=== PATIENT | female | born 1950 | race Caucasian/White ===

== ENCOUNTER → 2018-11-26 | Day surgery (SDC) | payer MEDICARE ==
[2018-11-21 12:33] LABS: BASOPHILS # (AUTO) 0.1 (0.0-0.1); BASOPHILS % 0.8 % (0.0-1.0); EOSINOPHILS # (AUTO) 0.1 (0.0-0.4); EOSINOPHILS % 1.4 % (0.0-6.0); HEMATOCRIT 43.6 % (34.2-44.1); HEMOGLOBIN 13.9 g/dL (12.0-16.0); LYMPHOCYTES # (AUTO) 3.3 (1.0-3.2); LYMPHOCYTES % 36.9 % (18.0-39.1); MEAN CORPUSCULAR HEMOGLOBIN 31.1 pg (28-32); MEAN CORPUSCULAR HGB CONC 31.9 g/dL (31-35); MEAN CORPUSCULAR VOLUME 97.5 fL (81-99); MONOCYTES # (AUTO) 0.5 (0.2-0.8); MONOCYTES % 6.1 % (4.4-11.3); NEUTROPHILS # (AUTO) 4.8 (2.1-6.9); NEUTROPHILS % 54.5 % (38.7-80.0); PLATELET COUNT 219 x10e3/uL (140-360); RED BLOOD COUNT 4.47 x10e6/uL (3.6-5.1); RED CELL DISTRIBUTION WIDTH 13.2 % (11.7-14.4)
[2018-11-21 12:50] LABS: ANION GAP 13.1 mmol/L (8-16); BLOOD UREA NITROGEN 18 mg/dL (7-26); BUN/CREATININE RATIO 22 (6-25); CALCIUM 9.8 mg/dL (8.4-10.2); CARBON DIOXIDE 27 mmol/L (22-29); CHLORIDE 105 mmol/L (98-107); CREATININE, SERUM 0.81 mg/dL (0.57-1.11); EST GLOMERULAR FILTRATION RATE > 60 ML/MIN (60-); GLUCOSE 89 mg/dL (74-118); POTASSIUM 4.1 mmol/L (3.5-5.1); SODIUM 141 mmol/L (136-145)
--- NOTE | 2018-11-21 13:36 | Diagnostic Imaging Report ---
Chest, 2 views, 11/21/2018. History: Preop, right foot surgery. Comparison: None available. Findings: Motion artifact is noted on the lateral view. There is poor inspiration. The cardiomediastinal silhouette and pulmonary vasculature are mildly prominent. There is no focal consolidation or pleural effusion. Degenerative changes are present throughout the thoracic spine. There are no acute osseous or soft tissue abnormalities. Impression: Mild cardiomegaly and vascular congestion. Signed by: Sunny Tim on 11/21/2018 1:32 PM
[~2018-11-26] MED LIST: ACETAMINOPHEN 1000 MG/100 ML IV ONE; ADVAIR 250-501 EACH INH; AMLODIPINE BESY10 MG PO; ASPIRIN81 MG PO; ATENOLOL25 MG PO; BUPIVACAINE HCL 0.5% INJ 30 ML VIAL INJ ONE; CARDIZEM CD180 MG PO; CEFAZOLIN SOD 1 GM/NS 50ML 50 ML IV ONE; CLOPIDOGREL75 MG PO; DEXAMETHASONE SOD PHOS INJ 4 MG/ML VIAL ONE; ESTRADIOL1 MG PO; ESTROGEN-METHY1 EAC1 PO; FENTANYL CITRATE/PF 100MCG/2 ML INJ ONE; FLUOXETINE HCL20 MG PO; GABAPENTIN300 MG PO; IBUPROFEN400 MG PO; LIDOCAINE HCL 2% LOCAL INJ 5 ML SDV VIAL INJ ONE; LOSARTAN-HCTZ1 EAC1 PO; MELOXICAM7.5 MG PO; METFORMIN HCL500 MG PO; METOPROLOL SUCC50 MG PO; MIDAZOLAM HCL 2 MG/2 ML VIAL ONE; MORPHINE SULFA100 MG PO; NITROSTAT0.4 MG SL; ONDANSETRON HCL INJ 2MG/ML 2ML 2 MG/ML VIAL ONE; PROPOFOL IV EMULSION 10 MG/ML 20 ML VIAL ONE; RANEXA500 MG PO; SEVOFLURANE INHAL SOLN 250 ML PEN BTL ONE; TRAZODONE HCL50 MG PO; TRIAZOLAM0.25 MG PO
--- OUTSIDE RECORDS SUMMARY | 2018-11-26 05:36 | XMS REPORT | Clinical Summary ---
Author Author [facility] Address Unknown Phone Unavailable Care Team Providers Care Teacher Visually Impaired Name Role Phone Asked, No Pcp PCP Unavailable Allergies Comments Active Allergy Reactions Severity Noted Date IV contrast Iodine And Iodide Anaphylaxis High 09/07/2015 Containing Products Medications End Date Status Medication Sig Dispensed Refills Start Date Active atenolol (TENORMIN) 50 MG Take 1 tablet 0 tablet by mouth 6 daily. Active benazepril-hydrochlorothi Take 1 tablet 0 azide (LOTENSIN HCT) by mouth 6 20-25 mg per tablet daily. Active cyclobenzaprine Take 1 tablet 0 (FLEXERIL) 10 MG tablet by mouth. 6 Active gabapentin (NEURONTIN) Take 1 tablet 0 600 MG tablet by mouth 3 6 (three) times a day. Active ibuprofen (ADVIL,MOTRIN) Take 1 tablet 0 800 MG tablet by mouth 3 6 (three) times a day. Active metFORMIN (GLUCOPHAGE) Take 1 tablet 0 500 MG tablet by mouth 6 daily. Active traZODone (DESYREL) 150 Take 1 tablet 0 201 MG tablet by mouth 6 nightly. Active amLODIPine (NORVASC) 10 0 mg tablet 9 Active clopidogrel (PLAVIX) 75 0 mg tablet 9 07/24/2019 Active estradiol (ESTRACE) 0.01 Apply 0.5 42.5 g 1 % (0.1 mg/gram) vaginal nightly for 2 9 creamIndications: Urge weeks, then 3 incontinence of urine, times per Vaginal atrophy week. 07/24/2019 Active desmopressin (DDAVP) 0.2 Take 1 tablet 30 tablet 11 MG tabletIndications: (200 mcg 9 Nocturnal polyuria, total) by Neurogenic bladder mouth nightly. Take as directed and with physician guidance. 07/24/2018 Discontinued (Ineffective) estradiol (ESTRACE) 1 MG 1 tablet 0 tablet daily. 6 07/24/2018 Discontinued (Reorder) desmopressin (DDAVP) 0.2 Take 1 tablet 30 tablet 11 MG tabletIndications: (200 mcg 9 Nocturnal polyuria total) by mouth nightly. Take as directed and with physician guidance. Active Problems Problem Noted Date Tobacco dependence 07/27/2018 Urge incontinence of urine 07/24/2018 Neurogenic bladder 07/24/2018 Intrinsic sphincter deficiency (ISD) 07/24/2018 Nocturnal polyuria 07/24/2018 Vaginal atrophy 07/24/2018 Encounters Care Team Description Date Type Specialty Homar Lemons MD 10/15/2018 Telephone Urology Homar Lemons MD 08/21/2018 Telephone Urology Homar Lemons MD 08/19/2018 Telephone Urology Dayna Damon MA 08/04/2018 Telephone Urology Homar Lemons MD Urge incontinence of urine (Primary Dx); Neurogenic bladder; Vaginal atrophy; Neurogenic dysfunction of the urinary bladder; Nocturnal polyuria; Intrinsic sphincter deficiency (ISD); Tobacco dependence 07/24/2018 Office Visit Urology Homar Lemons MD Neurogenic dysfunction of the urinary bladder (Primary Dx) 07/22/2018 Transcribe Urology Orders Homar Lemons MD 07/08/2018 Telephone Urology Ej Otto MD 06/02/2018 Transcribe Access Orders Ej Otto MD Urge incontinence; Mixed incontinence urge and stress (male)(female) 05/27/2018 Hospital Radiology Encounter Ej Otto MD Urge incontinence (Primary Dx); Mixed incontinence urge and stress (male)(female) 05/27/2018 Transcribe Access Orders after 11/25/2017 Family History Relation Name Status Comments Father Mother Social History Date Tobacco Use Types Packs/Day Years Used Started: 1964 Current Every Day Smoker Cigarettes 1.5 45 Smokeless Tobacco: Never Used Tobacco Cessation: Ready to Quit: Yes; Counseling Given: Yes Comments: tryint to quit Drinks/Week oz/Week Comments Alcohol Use No Sex Assigned at Date Recorded Not on file Industry Job Start Date Occupation Not on file Not on file Not on file Travel End Travel History Travel Start No recent travel history available. Last Filed Vital Signs Reading Time Taken Comments Vital Sign 189/94 07/24/2018 9:14 AM CDT Blood Pressure 64 07/24/2018 9:14 AM CDT Pulse - - Temperature - - Respiratory Rate - - Oxygen Saturation - - Inhaled Oxygen Concentration - - Weight - - Height - - Body Mass Index Plan of Treatment Health Maintenance Due Date Last Done Comments BREAST CANCER SCREENING 2000 COLONOSCOPY SCREENING 2000 SHINGLES VACCINES (#1) 2000 65+ PNEUMOCOCCAL VACCINE 12/13/2015 12/18/2016 (2 of 2 - PPSV23) INFLUENZA VACCINE 10/23/2018 12/04/2016, 12/17/2014, 02/23/2014 Implants Device Identifier Shelf Expiration Date Model / Serial / Lot Implanted Type Area Manufactur er [id number] / / Catheter Uretl 4.8fr 8fr 70cm Cn-Tp Urological N/A: N/A JENNA W/ Opn-End - [id number] Implants UROLOGICAL Implanted: 09/07/2015 at [facility] or [facility] (Quantity not on file) Procedures Comments Procedure Name Priority Date/Time Associated Diagnosis URINE CULTURE Routine 07/24/2018 Urge incontinence of 11:59 AM CDT urine POC URINALYSIS DIPSTICK Routine 07/24/2018 Urge incontinence of 9:20 AM CDT urine Neurogenic bladder Vaginal atrophy Neurogenic dysfunction of the urinary bladder XR HIPS BILATERAL AP Routine 05/27/2018 Urge incontinence LATERAL W AP PELVIS 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 Mixed incontinence urge and stress (male)(female) after 11/25/2017 Results * Urine culture (07/24/2018 11:59 AM CDT) Urine culture No growth [facility] Specimen Urine Narrative Performed At Performed at:01 - [facility] [address], [id number] Cook Box Filler: Osman Hoskins MD, Phone:[phone] Performing Organization Address City/State/Zipcode Phone Number [facility] * POC urinalysis dipstick (07/24/2018 9:20 AM CDT) Color urine, Yellow POC Clarity urine, Clear POC Glucose urine, Negative Negative POC Bilirubin Negative Negative urine, POC Ketones urine, Negative Negative POC Specific 1.020 1.005 - 1.030 gravity urine, POC Blood urine, Trace (A) Negative POC pH urine, POC 6.0 5.0, 5.5, 6.0, 6.5, 7.0, 7.5, 8.0, 8.5 Protein urine, Negative Negative POC Urobilinogen <2.0 <2.0 urine, POC Nitrite urine, Negative Negative POC Leukocyte Negative Negative esterase urine, POC Specimen Urine * XR Hips Bilateral Ap Lateral W Ap Pelvis (05/27/2018 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) Specimen Narrative Performed At EXAMINATION:XR HIPS BILATERAL AP LATERAL W AP PELVIS [facility] CLINICAL HISTORY:N39.41 Urge incontinence, N39.46 Mixed incontinence, N39.41 COMPARISON:09/07/2015 IMPRESSION: 1.Sacrum is obscured by bowel gas and feces. 2.The bones are adequately mineralized. There is no acute fracture or dislocation. There are degenerative changes in the lumbar spine, mild to moderate. Mild to moderate degenerative changes are present in the hips, left slightly greater than right. 3.Bilateral sacral nerve stimulators. [facility]-[id number] Procedure Note Hm Interface, Radiology Results Incoming - 05/27/2018 12:50 PM TELEGRAPH PRINTER MECHANIC EXAMINATION: XR HIPS BILATERAL AP LATERAL W AP PELVIS CLINICAL HISTORY: N39.41 Urge incontinence, N39.46 Mixed incontinence, N39.41 COMPARISON: 09/07/2015 IMPRESSION: 1. Sacrum is obscured by bowel gas and feces. 2. The bones are adequately mineralized. There is no acute fracture or dislocation. There are degenerative changes in the lumbar spine, mild to moderate. Mild to moderate degenerative changes are present in the hips, left slightly greater than right. 3. Bilateral sacral nerve stimulators. [facility]-[id number] Performing Organization Address City/State/Zipcode Phone Number [facility] [address] [place] [address] after 11/25/2017 Insurance Type Payer Benefit Subscriber ID Effective Phone Address Plan / Dates Group HMO TEX[employer] TEXANPLUS xxxxxxxxx 2018-P [facility] resent Advance Directives For more information, please contact: [phone] Patient Operations And Maintenance Supervisor Explanation Type Date Recorded Advance Directives, Living Will and Medical Power of Fuse Spooler
--- OUTSIDE RECORDS SUMMARY | 2018-11-26 05:37 | XMS REPORT ---
Author [facility] Address Unknown Phone Unavailable Care Team Providers Care Fashion Journalist Name Role Phone KOSTAJose Unavailable Unavailable Problems This patient has no known problems. Allergies, Adverse Reactions, Alerts This patient has no known allergies or adverse reactions. Medications This patient has no known medications. Results Test Description Test Time Test Comments Text Results Atomic Results Result Comments CHEST 2 VIEWS 2018-11-21 13:31:00 [place] [address] Patient Name: CARMEN CALABRESE MR #: [id number] : 1950 Age/Sex: 67/F Req #: [id number] Adm Physician: Ordered by: DEUCE BRAMBILA DPM Report #: [id number] Location: OR Room/Bed: Procedure: [id number] DX/CHEST 2 VIEWS Exam Date: 11/21/18 Exam Time: 1230 REPORT STATUS: Signed Chest, 2 views, 11/21/2018. History: Preop, right foot surgery. Comparison: None available. Findings: Motion artifact is noted on the lateral view. There is poor inspiration. The cardiomediastinal silhouette and pulmonary vasculature are mildly prominent. There is no focal consolidation or pleural effusion. Degenerative changes are present throughout the thoracic spine. There are no acute osseous or soft tissue abnormalities. Impression: Mild cardiomegaly and vascular congestion. Signed by: Sunny Tim on 11/21/2018 1:32 PM Dictated By: SUNNY TIM MD 1332 Transcribed By: SCOTT on 11/21/18 1332 COPY TO: DEUCE BRAMBILA DPM
[2018-11-26 11:15] VITALS: BP 124/76
--- NOTE | 2018-11-28 17:03 | Operative Report ---
DATE OF PROCEDURE: 11/26/2018 SURGEON: Vega Moreland DPM PREOPERATIVE DIAGNOSES: 1. Right hallux valgus. 2. Right heel spur. POSTOPERATIVE DIAGNOSES: 1. Right hallux valgus. 2. Right heel spur. PLANNED PROCEDURES: 1. Right Elder bunionectomy with 1st metatarsal osteotomy and internal fixation. 2. Right inferior calcaneal heel spur. FOOD SERVICE AGENT: Stuart Live DPM (Charley). ANESTHESIA: General with a postoperative block consisting of 20 mL of 0.5% Marcaine plain mixed with 1 mL of dexamethasone phosphate. HEMOSTASIS: Pneumatic thigh tourniquet set at 350 mmHg for a total time approximately 45 minutes. MATERIALS: Two 2.0 x 16 mm cortical bone screws, 2-0 Vicryl, 3-0 Vicryl, 4-0 Prolene. ESTIMATED BLOOD LOSS: Less than 10 mL. PATHOLOGY: None. PROCEDURE NOTE: The patient was seen in the preoperative waiting room, where the correct procedure and site were identified. The patient was brought to the operative room, placed on the operating table in supine position. General anesthesia was initiated. At this time, a well-padded pneumatic tourniquet was placed about the patient's right thigh. The right foot, ankle, and leg were then scrubbed, prepped, and draped in the usual aseptic manner. The right foot, ankle, and leg were exsanguinated with an Esmarch bandage and the pneumatic thigh tourniquet was inflated to 350 mmHg for a total time of approximately 40 minutes. Attention was directed to the distal aspect of the patient's right foot in the area of the 1st metatarsophalangeal joint, where a large dorsomedial prominence was noted with the hallux deviated laterally. A 6 cm curvilinear incision was made directly over the 1st metatarsophalangeal joint medial to the extensor hallucis longus tendon. The incision was carried through subcutaneous tissue it from deep or underlying structures. All vital neurovascular structures were identified and retracted medially and laterally and all bleeders were cauterized or ligated as deemed necessary. At this time, attention was directed to the 1st interspace. Through the same incision, a full lateral release was performed consisting of a deep transverse metatarsal ligament, lateral collateral ligament, as well as a fibular sesamoid ligament. The hallux was then put through range of motion and found to be functioning in a more proper anatomic alignment. Next, attention was directed back to the 1st metatarsal head, where an inverted L capsulotomy was performed to allow for good visualization of the 1st metatarsal head. Utilizing a sagittal saw, the medial eminence was resected and passed off to the back table. Next, utilizing a 0.45 K-wire for a temporary guide, an Elder bunionectomy was performed with a chevron osteotomy from medial to lateral with a dorsal wing longer to allow for proper fixation. The capital fragment was transposed laterally approximately 3-5 mm and impacted onto the shaft of the 1st metatarsal head and temporally fixated with a K-wire. This was confirmed via intraoperative fluoroscopy to be in good alignment and sesamoid position had been reduced as well as intermetatarsal angle. Next, utilizing techniques of AO fixation, two 2.0 mm x 16 mm cortical bone screws were placed. Fixation site was stable. Next, the medial shelf was resected and passed off to the back table and the 1st metatarsal head was smoothed with anatomic alignment utilizing a rotary bur. The wound was then copiously irrigated with sterile saline. Capsule and deep tissue were reapproximated with 2-0 Vicryl, subcutaneous tissue with 3-0 Vicryl, and the skin was closed using a running interlocking stitch of 4-0 Prolene. Attention was then directed to the medial aspect of the patient's right heel, where a 3 cm linear incision was made directly at the medial inferior aspect of the heel. Incision was carried down to the level of the plantar fascia, which was dissected dorsally and plantarly and cut approximately 1/2 to 1/3 with Metzenbaum scissors. The incision was carried down to the level of the heel spur. It was easily identified utilizing osteotome and mallet. This was resected and passed off to the back table. The remainder of the bone spur was smoothed utilizing a rongeur and a rasp. The wound was then copiously irrigated with sterile saline and per manufacture protocol, one TLS drain was placed. Deep tissue was reapproximated with 3-0 Vicryl and skin was closed using a running interlocking stitch of 4-0 Prolene. Next, both incision sites were dressed with Adaptic, 4x4s, Kerlix, Kameron wrap, and a postop shoe. The patient tolerated the procedure and anesthesia well. The patient was transferred to the postoperative recovery unit with vital signs stable and vascular status intact. The patient was monitored there for a short period of time before being sent home with the following written and oral instructions. 1. Keep the dressing clean, dry, and intact. 2. The patient is to remain nonweightbearing in a postop shoe and crutches until being seen in the office. The patient is given the office number to try to contact us if any problems arise. MEMO Oconnor/MATILDE /[id number]
== END | disposition home or self-care (01) ==
LOC: OR 05:34
PROVIDERS: ATTEND Podiatrist Foot & Ankle Surgery
DX: M20.11 Hallux valgus (acquired), right foot (principal); M77.31 Calcaneal spur, right foot; J44.9 Chronic obstructive pulmonary disease, unspecified; I11.0 Hypertensive heart disease with heart failure; I50.9 Heart failure, unspecified; R00.1 Bradycardia, unspecified; E78.5 Hyperlipidemia, unspecified; E11.9 Type 2 diabetes mellitus without complications; F17.210 Nicotine dependence, cigarettes, uncomplicated; Z91.041 Radiographic dye allergy status; Z01.810 Encounter for preprocedural cardiovascular examination; Z01.812 Encounter for preprocedural laboratory examination; Z01.818 Encounter for other preprocedural examination; Z79.02 Long term (current) use of antithrombotics/antiplatelets; Z79.82 Long term (current) use of aspirin; Z79.84 Long term (current) use of oral hypoglycemic drugs
CPT/HCPCS: 28119; 28296; 36415 ×2; 71046; 80048; 82948; 85025; 93005; C1713; J0131; J0690; J1100; J2001; J2250; J2405; J2704; J3010